=== PATIENT | male | born 1945 | race Caucasian/White ===

== ENCOUNTER → 2023-09-28 | Day surgery (SDC) | payer MEDICARE ==
[2023-09-26 11:37] LABS: BASOPHILS # (AUTO) 0.1 (0.0-0.1); BASOPHILS % 1.2 % (0.0-1.0); EOSINOPHILS # (AUTO) 0.1 (0.0-0.4); EOSINOPHILS % 2.4 % (0.0-6.0); HEMATOCRIT 42.5 % (38.2-49.6); HEMOGLOBIN 13.5 g/dL (14.0-18.0); LYMPHOCYTES # (AUTO) 2.1 (1.0-3.2); LYMPHOCYTES % 41.4 % (18.0-39.1); MEAN CORPUSCULAR HEMOGLOBIN 32.3 pg (28-32); MEAN CORPUSCULAR HGB CONC 31.8 g/dL (31-35); MEAN CORPUSCULAR VOLUME 101.7 fL (81-99); MONOCYTES # (AUTO) 0.4 (0.2-0.8); MONOCYTES % 7.4 % (4.4-11.3); NEUTROPHILS # (AUTO) 2.4 (2.1-6.9); NEUTROPHILS % 47.4 % (38.7-80.0); PLATELET COUNT 149 x10e3/uL (140-360); RED BLOOD COUNT 4.18 x10e6/uL (4.3-5.7); RED CELL DISTRIBUTION WIDTH 12.4 % (11.7-14.4); WHITE BLOOD COUNT 4.98 x10e3/uL (4.8-10.8)
[~2023-09-28] MED LIST: ALPHA LIPOIC A600 M1 PO; ASPIRIN81 MG PO; AZITHROMYCIN250 MG PO; AZO CRANBERRY1 EACH PO; BENAZEPRIL HCL10 MG PO; BETA SITOSTEROL PO; CHROMIUM PICO400 MCG PO; CINNAMON500 MG PO; COCONUT OIL1000 MG PO; COQ1050 MG PO; CRESTOR40 MG PO; FENOFIBRATE200 MG PO; FUCOIDAN; GLIMEPIRIDE4 MG PO; GLIPIZIDE5 MG PO; HYALURONIC ACI1 EACH PO; HYALURONIC ACID60 MG PO; KRILL OIL500 MG PO; LIDOCAINE HCL 2% LOCAL INJ 5 ML SDV VIAL INJ ONE; MEMANTINE HCL10 MG PO; METFORMIN HCL500 MG PO; OMEGA 3 1,0001 EACH PO; OZEMPIC0.25 MG/02 SC; PIOGLITAZONE HC45 MG PO; PROPOFOL IV EMULSION 10 MG/ML 20 ML VIAL ONE; REXULTI1 MG PO; RIVASTIGMINE1.5 MG PO; SIMVASTATIN20 MG PO; TOUJEO SOL300 UNIT/1 SC; TYLENOL # 31 EA PO; UBIQUINOL100 MG PO; VIT C PO; VITAMIN B-121000 MCG PO; VITAMIN C100 MG PO; [UNRECOGNIZED DRUG - OTHER] INH; [UNRECOGNIZED DRUG - OTHER] PO; [UNRECOGNIZED DRUG - OTHER] PO; [UNRECOGNIZED DRUG - OTHER] PO; [UNRECOGNIZED DRUG - OTHER] PO; [UNRECOGNIZED DRUG - OTHER] PO
[2023-09-28] MEDS: LACTATED RINGER'S 1,000 ML ONE (13:02)
[2023-09-28 16:30] VITALS: BP 112/62; PULSE 61; RESP 16; O2SAT 97
== END | disposition home or self-care (01) ==
LOC: OR 12:25
PROVIDERS: ATTEND Internal Medicine Gastroenterology
DX: Z12.11 Encounter for screening for malignant neoplasm of colon (principal); D12.2 Benign neoplasm of ascending colon; K64.8 Other hemorrhoids; Z90.49 Acquired absence of other specified parts of digestive tract; I10 Essential (primary) hypertension; E78.5 Hyperlipidemia, unspecified; E11.9 Type 2 diabetes mellitus without complications; Z79.85 Long-term (current) use of injectable non-insulin antidiabetic drugs; Z79.84 Long term (current) use of oral hypoglycemic drugs; G47.33 Obstructive sleep apnea (adult) (pediatric); F41.9 Anxiety disorder, unspecified; F32.A Depression, unspecified; G30.9 Alzheimer's disease, unspecified; F02.80 Dementia in other diseases classified elsewhere, unspecified severity, without behavioral disturbance, psychotic disturbance, mood disturbance, and anxiety; Z01.810 Encounter for preprocedural cardiovascular examination; Z01.812 Encounter for preprocedural laboratory examination; I44.0 Atrioventricular block, first degree; Z79.02 Long term (current) use of antithrombotics/antiplatelets; Z79.82 Long term (current) use of aspirin; Z79.899 Other long term (current) drug therapy
CPT/HCPCS: 36415; 45385; 85025; 88305; 93005; J2001; J2704; J7121; 45384